=== PATIENT | male | born 1950 | race American Indian/Alaskan Native ===

== ENCOUNTER 2021-02-22 07:32 | Observation (INO) | payer MEDICARE ==
[2021-02-19 10:57] LABS: Hematocrit 43.5 % (35.5-45.6); Mean Corpuscular HGB Conc 32 % (32-34); Mean Corpuscular Volume 96 fl (84-94); Platelet Count 261 K/mm3 (140-440); Red Blood Count 4.54 M/mm3 (3.65-5.03); Red Cell Distribution Width 13.8 % (13.2-15.2)
--- NOTE | 2021-02-19 11:02 | Anesthesia Consultation ---
Anesthesia Consult and Med Hx Date of service: 02/22/21 - Airway Anesthetic Teeth Evaluation: Good ROM Head & Neck: Adequate Mental/Hyoid Distance: Adequate Mallampati Class: Class II Intubation Access Assessment: Probably Good - Pulmonary Exam CTA: Yes - Cardiac Exam Cardiac Exam: RRR - Pre-Operative Health Status ASA Pre-Surgery Classification: ASA2 Proposed Anesthetic Plan: General Nerve Block: TAP - Pulmonary Hx Smoking: Yes (occasional THC) Hx Respiratory Symptoms: No - Cardiovascular System Hx Hypertension: Yes Hx Heart Attack/AMI: No Hx Percutaneous Transluminal Coronary Angioplasty (PTCA): No - Central Nervous System CVA: No - Endocrine Hx Renal Disease: No Hx Liver Disease: No Hx Insulin Dependent Diabetes: No Hx Non-Insulin Dependent Diabetes: No Hx Thyroid Disease: No - Other Systems Hx Substance Use: Yes (THC) Hx Cancer: Yes (prostate ca) - Additional Comments Anesthesia Medical History Comments: No hx anesthetic complications. Had preop medical eval with PCP this week; states PCP had no concerns and gave "clearance." Records requested.
[2021-02-19 11:24] LABS: Alanine Aminotransferase 34 units/L (7-56); Albumin 4.3 g/dL (3.9-5); BUN/Creatinine Ratio 11; Blood Urea Nitrogen 10 mg/dL (9-20); Calcium 9.5 mg/dL (8.4-10.2); Hemolysis Index 37
[~2021-02-22 07:32] MED LIST: ACETAMINOPHEN 500 MG TAB PO SCH; BUPIVACAINE/PF (0.25%) 2.5 MG/ML 30 ML VIAL INFILTRATI ONE; CALCIUM CHLORIDE 1,000 MG/10 ML SYRINGE IV ONE; CELECOXIB 200 MG CAP PO NR; CITRIC ACID-SOD CITRATE 500 ML IV ONE; GABAPENTIN 300 MG CAP PO NR; HYDROmorphone 1 MG/1 ML INJ ONE; LACTATED RINGERS 1,000 ML IV SCH; LIDOCAINE MPF (2%) 20 MG/1 ML VIAL 5 ML ONE; METHYLENE BLUE 50 MG/10 ML AMP ONE; MIDAZOLAM 2 MG/2 ML INJ IV NR; ONDANSETRON 4 MG/2 ML INJ ONE; ROCURONIUM 50 MG/5 ML INJ IV ONE; THROMBIN (RECOMBINANT) 5,000 UNIT VIAL TP ONE; dexAMETHasone 20 MG/5 ML VIAL ONE; dexAMETHasone 4 MG/ML VIAL ONE; fentaNYL 100 MCG/2 ML INJ IV PRN; propofoL 200 MG/20 ML VIAL IV ONE
[2021-02-22] MEDS ORDERED: ceFAZolin/Water 2 GM/20 ML 2 GM/20 ML SYRINGE IV ONE (07:37)
[2021-02-22] MEDS ORDERED: HYDROmorphone 1 MG/1 ML INJ IV PRN ×2 (07:45→08:00)
--- NOTE | 2021-02-22 07:45 | Anesthesia Day of Surgery ---
Anesthesia Day of Surgery - Day of Surgery Patient Examined: Yes Patient H&P Reviewed: Yes Patient is NPO: Yes (Time 724)
[2021-02-22] MEDS ORDERED: ONDANSETRON 4 MG/2 ML INJ IV PRN ×2 (08:00→10:42)
[2021-02-22] MEDS ORDERED: ceFAZolin/Water 2 GM/20 ML 2 GM/20 ML SYRINGE IV NR (08:00)
[2021-02-22] MEDS ORDERED: PHENYLEPHRINE/NS 1,000 MCG/10 ML SYRINGE (OR USE) IV ONE (08:33)
[2021-02-22] MEDS ORDERED: CITRIC ACID-SOD CITRATE SOLN 500 ML IV SOLN IV ONE (09:17)
[2021-02-22] MEDS ORDERED: THROMBIN (RECOMBINANT) 5,000 UNIT VIAL TP ONE (09:17)
[2021-02-22] MEDS ORDERED: WATER FOR IRRIG STERILE 1,500 ML BOTTLE IR ONE (09:17)
[2021-02-22] MEDS ORDERED: CALCIUM CHLORIDE 1,000 MG/10 ML SYRINGE IV ONE (09:17)
[2021-02-22] MEDS ORDERED: NEOSTIGMINE 10MG/10 ML INJ MDV ONE (10:34)
[2021-02-22] MEDS ORDERED: GLYCOPYRROLATE 0.4 MG/2 ML INJ ONE (10:34)
[2021-02-22] MEDS ORDERED: LACTATED RINGERS 1,000 ML ONE (10:37)
[2021-02-22] MEDS ORDERED: MORPHINE 4 MG/1 ML INJ IV PRN (10:42)
[2021-02-22] MEDS ORDERED: MORPHINE 2 MG/1 ML INJ IV PRN (10:42)
[2021-02-22] MEDS ORDERED: ZOLPIDEM 5 MG TAB PO PRN (10:42)
[2021-02-22] MEDS ORDERED: NALOXONE 0.4 MG/1 ML INJ IV PRN (10:42)
[2021-02-22] MEDS ORDERED: ACETAMINOPHEN 325 MG TAB PO PRN (10:42)
--- NOTE | 2021-02-22 10:42 | Short Stay Summary ---
Short Stay Documentation Date of service: 02/22/21 - History H&P: obtained from office - Allergies and Medications Current Medications: Allergies codeine Allergy (Verified 02/19/21 11:00) Itching Home Medications Medication Instructions Recorded Confirmed Last Taken Type Amlodipine-Benazepril 5-20 mg 1 tab PO DAILY 02/19/21 02/22/21 02/22/21 04:00 History AtorvaSTATin [Lipitor] 20 mg PO QHS 02/19/21 02/22/21 02/22/21 04:00 History Active Medications Acetaminophen (Acetaminophen 500 Mg Tab) 1,000 mg PO PREOP URBANO Stop: 02/22/21 20:00 Last Admin: 02/22/21 06:35 Dose: 1,000 mg Celecoxib (Celecoxib 200 Mg Cap) 200 mg PO PREOP NR Stop: 02/22/21 20:00 Last Admin: 02/22/21 06:35 Dose: 200 mg Fentanyl (Fentanyl 100 Mcg/2 Ml Inj) 100 mcg IV ONCE PRN PRN Reason: sedation for nerve block Stop: 02/22/21 20:00 Last Admin: 02/22/21 07:34 Dose: 100 mcg Gabapentin (Gabapentin 300 Mg Cap) 300 mg PO PREOP NR Stop: 02/22/21 20:00 Last Admin: 02/22/21 06:35 Dose: 300 mg Hydromorphone HCl (Hydromorphone 1 Mg/1 Ml Inj) 0.25 mg IV Q10MIN PRN PRN Reason: Pain, Moderate (4-6) Stop: 02/22/21 23:00 Hydromorphone HCl (Hydromorphone 1 Mg/1 Ml Inj) 0.5 mg IV Q10MIN PRN PRN Reason: Pain , Severe (7-10) Stop: 02/22/21 23:00 Lactated Ringer's (Lactated Ringers) 1,000 mls @ 100 mls/hr IV DIRECT URBANO Stop: 02/22/21 23:59 Last Admin: 02/22/21 07:10 Dose: 100 mls/hr Midazolam HCl (Midazolam 2 Mg/2 Ml Inj) 2 mg IV PREOP NR Stop: 02/22/21 20:00 Last Admin: 02/22/21 07:34 Dose: 2 mg - Brief post op/procedure progress note Date of procedure: 01/10/22 Pre-op diagnosis: prostate cancer Post-op diagnosis: same Procedure: robotic prostatectomy Anesthesia: GETA Surgeon: RACHELLE MUÑIZ Estimated blood loss: other (200) Pathology: none (prostate) Specimen disposition: to lab Condition: stable - Hospital course Hospital course: norco,bactrim,post op info given - Disposition Condition at discharge: Stable Disposition: 01 HOME / SELF CARE / HOMELESS Short Stay Discharge Plan Follow up with: SHIREEN BAPTISTE MD [Primary Care Provider] - 7 Days
[2021-02-22] MEDS ORDERED: LACTATED RINGERS 1,000 ML IV SCH (10:45)
--- NOTE | 2021-02-22 10:56 | Consultation ---
History of Present Illness - Reason for Consult Consult date: 02/22/21 Management of medical conditions - History of Present Illness 70-year-old male with history of hypertension and hyperlipidemia, diagnosed with prostate cancer and underwent robotic prostatectomy today and a medical consult was requested to manage his medical conditions Medications and Allergies Allergies Allergy/AdvReac Type Severity Reaction Status Date / Time codeine Allergy Itching Verified 02/19/21 11:00 Home Medications Medication Instructions Recorded Confirmed Last Taken Type Amlodipine-Benazepril 5-20 mg 1 tab PO DAILY 02/19/21 02/22/21 02/22/21 04:00 History AtorvaSTATin [Lipitor] 20 mg PO QHS 02/19/21 02/22/21 02/22/21 04:00 History Active Meds: Active Medications Acetaminophen (Acetaminophen 500 Mg Tab) 1,000 mg PO PREOP URBANO Stop: 02/22/21 20:00 Last Admin: 02/22/21 06:35 Dose: 1,000 mg Acetaminophen (Acetaminophen 325 Mg Tab) 650 mg PO Q4H PRN PRN Reason: Pain, Mild (1-3)/Fever > 100.5 Amlodipine Besylate (Amlodipine 5 Mg Tab) 5 mg PO QDAY URBANO Atorvastatin Calcium (Atorvastatin 20 Mg Tab) 20 mg PO QHS URBANO Celecoxib (Celecoxib 200 Mg Cap) 200 mg PO PREOP NR Stop: 02/22/21 20:00 Last Admin: 02/22/21 06:35 Dose: 200 mg Fentanyl (Fentanyl 100 Mcg/2 Ml Inj) 100 mcg IV ONCE PRN PRN Reason: sedation for nerve block Stop: 02/22/21 20:00 Last Admin: 02/22/21 07:34 Dose: 100 mcg Gabapentin (Gabapentin 300 Mg Cap) 300 mg PO PREOP NR Stop: 02/22/21 20:00 Last Admin: 02/22/21 06:35 Dose: 300 mg Hydromorphone HCl (Hydromorphone 1 Mg/1 Ml Inj) 0.25 mg IV Q10MIN PRN PRN Reason: Pain, Moderate (4-6) Stop: 02/22/21 23:00 Hydromorphone HCl (Hydromorphone 1 Mg/1 Ml Inj) 0.5 mg IV Q10MIN PRN PRN Reason: Pain , Severe (7-10) Stop: 02/22/21 23:00 Lactated Ringer's (Lactated Ringers) 1,000 mls @ 100 mls/hr IV DIRECT URBANO Stop: 02/22/21 23:59 Last Admin: 02/22/21 07:10 Dose: 100 mls/hr Lactated Ringer's (Lactated Ringers) 1,000 mls @ 100 mls/hr IV DIRECT URBANO Cefazolin Sodium (Ancef/Ns 1 Gm/50 Ml) 1 gm in 50 mls @ 100 mls/hr IV Q8H URBANO; Protocol Stop: 02/22/21 19:29 Midazolam HCl (Midazolam 2 Mg/2 Ml Inj) 2 mg IV PREOP NR Stop: 02/22/21 20:00 Last Admin: 02/22/21 07:34 Dose: 2 mg Morphine Sulfate (Morphine 4 Mg/1 Ml Inj) 4 mg IV Q4H PRN PRN Reason: Pain , Severe (7-10) Morphine Sulfate (Morphine 2 Mg/1 Ml Inj) 2 mg IV Q4H PRN PRN Reason: Pain, Moderate (4-6) Naloxone HCl (Naloxone 0.4 Mg/1 Ml Inj) 0.1 mg IV Q2MIN PRN PRN Reason: Res Rate </= 8 or 02 SAT < 92% Ondansetron HCl (Ondansetron 4 Mg/2 Ml Inj) 4 mg IV Q8H PRN PRN Reason: Nausea And Vomiting Zolpidem Tartrate (Zolpidem 5 Mg Tab) 5 mg PO QHS PRN PRN Reason: Sleep Exam - Constitutional Vitals: Temp Pulse Resp BP Pulse Ox 97.9 F 65 14 122/77 100 02/22/21 06:40 02/22/21 07:58 02/22/21 08:05 02/22/21 07:58 02/22/21 07:58 Results - Labs CBC & Chem 7: 02/19/21 10:30 02/19/21 10:30
[2021-02-22] MEDS ORDERED: ceFAZolin/NS 1 GM/50 ML 1 GM/50 ML BAG IV SCH ×3 (11:00→23:00)
--- NOTE | 2021-02-22 13:47 | Post Anesthesia Evaluation ---
- Post Anesthesia Evaluation Patient Participated: Yes Airway Patent: Yes Stable Respiratory Function: Yes Nausea/Vomiting: No Temp > 96.8F: Yes Pain Manageable: Yes Adequeate Hydration: Yes Anesthesia Complications: No Block Receding Appropriately: Yes Patient on Ventilator: No
--- NOTE | 2021-02-22 18:42 | Consultation ---
History of Present Illness - Reason for Consult Consult date: 02/22/21 Medical management Requesting physician: RACHELLE MUÑIZ - History of Present Illness Patient is s/p robotic prostatectomy. Patient is doing well postop. Patient has a history of hypertension and h yperlipidemia and BPH Past History Past Medical History: hypertension, hyperlipidemia, other (BPH) Past Surgical History: TURP (Robotic prostatectomy) Social history: lives with family, full code Family history: hypertension Medications and Allergies Allergies Allergy/AdvReac Type Severity Reaction Status Date / Time codeine Allergy Itching Verified 02/19/21 11:00 Home Medications Medication Instructions Recorded Confirmed Last Taken Type Amlodipine-Benazepril 5-20 mg 1 tab PO DAILY 02/19/21 02/22/21 02/22/21 04:00 History AtorvaSTATin [Lipitor] 20 mg PO QHS 02/19/21 02/22/21 02/22/21 04:00 History Active Meds: Active Medications Acetaminophen (Acetaminophen 500 Mg Tab) 1,000 mg PO PREOP URBANO Stop: 02/22/21 20:00 Last Admin: 02/22/21 06:35 Dose: 1,000 mg Acetaminophen (Acetaminophen 325 Mg Tab) 650 mg PO Q4H PRN PRN Reason: Pain, Mild (1-3)/Fever > 100.5 Amlodipine Besylate (Amlodipine 5 Mg Tab) 5 mg PO QDAY URBANO Atorvastatin Calcium (Atorvastatin 20 Mg Tab) 20 mg PO QHS URBANO Celecoxib (Celecoxib 200 Mg Cap) 200 mg PO PREOP NR Stop: 02/22/21 20:00 Last Admin: 02/22/21 06:35 Dose: 200 mg Fentanyl (Fentanyl 100 Mcg/2 Ml Inj) 100 mcg IV ONCE PRN PRN Reason: sedation for nerve block Stop: 02/22/21 20:00 Last Admin: 02/22/21 07:34 Dose: 100 mcg Gabapentin (Gabapentin 300 Mg Cap) 300 mg PO PREOP NR Stop: 02/22/21 20:00 Last Admin: 02/22/21 06:35 Dose: 300 mg Hydromorphone HCl (Hydromorphone 1 Mg/1 Ml Inj) 0.25 mg IV Q10MIN PRN PRN Reason: Pain, Moderate (4-6) Stop: 02/22/21 23:00 Hydromorphone HCl (Hydromorphone 1 Mg/1 Ml Inj) 0.5 mg IV Q10MIN PRN PRN Reason: Pain , Severe (7-10) Stop: 02/22/21 23:00 Lactated Ringer's (Lactated Ringers) 1,000 mls @ 100 mls/hr IV DIRECT URBANO Stop: 02/22/21 23:59 Last Admin: 02/22/21 07:10 Dose: 100 mls/hr Lactated Ringer's (Lactated Ringers) 1,000 mls @ 100 mls/hr IV DIRECT URBANO Cefazolin Sodium (Ancef/Ns 1 Gm/50 Ml) 1 gm in 50 mls @ 100 mls/hr IV 1300,2100 URBANO; Protocol Stop: 02/22/21 21:29 Midazolam HCl (Midazolam 2 Mg/2 Ml Inj) 2 mg IV PREOP NR Stop: 02/22/21 20:00 Last Admin: 02/22/21 07:34 Dose: 2 mg Morphine Sulfate (Morphine 4 Mg/1 Ml Inj) 4 mg IV Q4H PRN PRN Reason: Pain , Severe (7-10) Morphine Sulfate (Morphine 2 Mg/1 Ml Inj) 2 mg IV Q4H PRN PRN Reason: Pain, Moderate (4-6) Naloxone HCl (Naloxone 0.4 Mg/1 Ml Inj) 0.1 mg IV Q2MIN PRN PRN Reason: Res Rate </= 8 or 02 SAT < 92% Ondansetron HCl (Ondansetron 4 Mg/2 Ml Inj) 4 mg IV Q8H PRN PRN Reason: Nausea And Vomiting Zolpidem Tartrate (Zolpidem 5 Mg Tab) 5 mg PO QHS PRN PRN Reason: Sleep Review of Systems All systems: negative Exam - Constitutional Vitals: Temp Pulse Resp BP Pulse Ox 98.4 F 71 12 119/71 97 02/22/21 18:00 02/22/21 18:00 02/22/21 18:00 02/22/21 18:00 02/22/21 18:00 General appearance: Present: no acute distress, well-nourished - EENT Eyes: Present: PERRL ENT: hearing intact, clear oral mucosa - Neck Neck: Present: supple, normal ROM - Respiratory Respiratory effort: normal Respiratory: bilateral: CTA - Cardiovascular Heart rate: 72 Rhythm: regular Heart Sounds: Present: S1 & S2. Absent: rub, click - Extremities Extremities: no ischemia, pulses intact, pulses symmetrical, No edema Peripheral Pulses: within normal limits - Abdominal General gastrointestinal: Present: soft, non-tender, non-distended, normal bowel sounds Male genitourinary: Present: normal - Rectal Rectal Exam: deferred - Integumentary Integumentary: Present: clear, warm, dry - Musculoskeletal Musculoskeletal: gait normal, strength equal bilaterally - Psychiatric Psychiatric: appropriate mood/affect, intact judgment & insight - Neurologic Neurologic: CNII-XII intact, moves all extremities - Allied Health Allied health notes reviewed: nursing, case management Results - Labs CBC & Chem 7: 02/19/21 10:30 02/19/21 10:30 Assessment and Plan - Patient Problems (1) Hypertension Current Visit: Yes Status: Chronic Qualifiers: Hypertension type: primary hypertension Qualified Code(s): I10 - Essential (primary) hypertension Plan to address problem: Continue amlodipine/benazepril and adjust medications as necessary (2) Hyperlipidemia Current Visit: Yes Status: Chronic Qualifiers: Hyperlipidemia type: mixed hyperlipidemia Qualified Code(s): E78.2 - Mixed hyperlipidemia Plan to address problem: Continue statins (3) Status post prostatectomy Current Visit: Yes Status: Acute Plan to address problem: Patient is s/p prostatectomy Postop patient doing well (4) DVT prophylaxis Current Visit: Yes Status: Acute Plan to address problem: On SCDs and GI prophylaxis (5) Advance care planning Current Visit: Yes Status: Acute Plan to address problem: Disease education conducted, care plan discussed, diagnosis discussed, patient is full code. Patient acknowledges understanding and agreement with care plan +30 minutes
--- NOTE | 2021-02-23 08:41 | Event Note ---
Date: 02/23/21 no issues elsa removed home with smith
[2021-02-23 09:53] VITALS: BP 171/80
[2021-02-23] MEDS ORDERED: AMLODIPINE BENAZEPRIL PO SCH (10:00)
[2021-02-23] MEDS ORDERED: amLODIPine 5 MG TAB PO SCH (10:00)
[2021-02-23] MEDS ORDERED: PNEUMOCOCCAL 23 Valent 0.5 ML VIAL IM ONE (12:00)
--- NOTE | 2021-02-23 13:45 | Operative Report ---
DATE OF SURGERY: 02/22/2021 PREOPERATIVE DIAGNOSIS: Prostate cancer, Kimberly 8. POSTOPERATIVE DIAGNOSIS: Prostate cancer, [place] 8. PROCEDURES: Robotic-assisted laparoscopic prostatectomy, bladder neck suspension, stem cell placement. SURGEON: Gustavo Schwarz MD PRE SALES TECHNICAL CONSULTANT: Ansley Ruiz. ANESTHESIA: General. ESTIMATED BLOOD LOSS: 200 mL FLUIDS: Crystalloid. COMPLICATIONS: No complications. DRAINS: Burt-Luna drain x 1. INDICATIONS: This 70-year-old gentleman was seen in the office for an elevated PSA of 10. He underwent transrectal ultrasound and biopsies of prostate. He was found to have [place] 8 adenocarcinoma of the prostate. Bone scan, CT scan unremarkable. Discussed options. He agreed to proceed with surgical intervention. DESCRIPTION OF PROCEDURE: The patient was taken to the operative suite, placed in supine position. After adequate general anesthesia, he was placed in a modified dorsal lithotomy position, prepped and draped in a sterile fashion. Ansley Ruiz was at the bedside throughout the procedure to assist. Abdomen was prepped and draped in a sterile fashion. Sánchez catheter was placed on the operative field. A 1 cm supraumbilical incision was made with the Bovie. Towel clips were placed. Veress needle was inserted. A drop test was negative. Opening pressure was 1 cm of water. Insufflation of the abdomen to 15 cm of water was performed without difficulty. The pubic symphysis was marked in the midline and then 15 cm cephalad the midline and then 9 cm lateral and an additional 9 cm lateral. These markings were used for robotic port placement. A 10 mm robotic port with a 0-degree lens was placed in the supraumbilical incision without difficulty. No injury, no signs of metastasis could be appreciated intraabdominally. The other ports were placed under direct vision without difficulty. The patient was then placed in an exaggerated dorsal lithotomy position. Robotic cart was docked between the legs. Second arch was scored. Seminal vesicles and vas deferens was dissected out. Dissection was then taken to the apex of the prostate without difficulty. Vas deferens was transected bilaterally. Attention was taken to the anterior abdominal wall, which was scored lateral to the lateral umbilical ligament and then across the midline to allow the bladder pedicle to drop. Dorsal vein complex was controlled with a 60 mm vascular stapler. The endopelvic fascia was opened bilaterally without difficulty. Anterior bladder neck was transected exposing the Sánchez catheter. It was deflated and pulled anteriorly to allow dissection of the posterior bladder neck. Lateral pedicles were controlled with a 60 mm vascular stapler. Bladder neck reconstruction was performed with 2-0 Vicryl in an interrupted fashion at the 5 o'clock position. Double-armed V-Loc stitch was placed at the 6 o'clock position of the bladder neck corresponding aspect of the urethra. Prior to closure of the anastomosis, a sheath of stem cells was placed, a 2 x 2 cm sheath was placed on the anterior rectal wall to enhance neurovascular bundle recovery. Bladder neck and urethra was reattached using a double-armed V-Loc in a running fashion. It was cinched down. Sánchez catheter was placed without difficulty, 15 mL sterile water in the balloon, irrigated. No clots and no leak. V-Loc stitch was placed into the pubic rami bilaterally under gentle tension for bladder neck suspension. Platelet membrane was placed on the anastomosis followed by platelet rich plasma injection, platelet-poor plasma. Burt-Luna drain was then placed on the top of the bladder, brought out through the robotic port on the left side and tied into the skin with a 2-0 silk. The robotic cart was undocked. The patient was placed in the supine position. Supraumbilical incision was extended to allow removal of the prostate. Rectus fascia was closed with 0 Vicryl in an interrupted fashion. Skin was closed with 3-0 Vicryl in an interrupted fashion. Sánchez catheter sideport was folded over, tied with 0 silk in an interrupted fashion. The patient tolerated the procedure well. He was extubated and taken to recovery room. He will be observed overnight and go home. TID: [id number] RECEIPT: [id number] ANJALI/HAI
== END 2021-02-23 12:00 | disposition home or self-care (01) ==
LOC: OR 07:32 → EDSTATUS 08:00 → 3A 10:43 → 4A 20:18
PROVIDERS: ADMIT Urology; ATTEND Urology
DX: C61 Malignant neoplasm of prostate (principal); Z20.822 Contact with and (suspected) exposure to COVID-19; N52.01 Erectile dysfunction due to arterial insufficiency; I10 Essential (primary) hypertension; E78.5 Hyperlipidemia, unspecified
CPT/HCPCS: 36415; 55866; 64450; 80053; 85027; 86850; 86900; 86901; 88307; 88309; 96365; G0378; J0690; J1100; J1170; J1815; J2250; J2370; J2405; J2704; J2710; J3010; J3490; J7120; Q4140; U0003; Q9968